=== PATIENT | male | born 1965 | race Hispanic/Latino ===

== ENCOUNTER → 2020-04-15 | Outpatient (CLI) | payer OTHER | END | disposition home or self-care (01) | LOC: RAH 11:26 | PROVIDERS: ATTEND Physical Medicine & Rehabilitation | DX: M19.011 Primary osteoarthritis, right shoulder (principal); M47.22 Other spondylosis with radiculopathy, cervical region; M48.02 Spinal stenosis, cervical region | CPT/HCPCS: 72040; 73030 ==

== ENCOUNTER → 2022-06-09 | Outpatient (CLI) | payer BC | END | disposition home or self-care (01) | LOC: RAH 08:45 | PROVIDERS: ATTEND Physical Medicine & Rehabilitation | DX: M47.816 Spondylosis without myelopathy or radiculopathy, lumbar region (principal); M99.03 Segmental and somatic dysfunction of lumbar region; M48.07 Spinal stenosis, lumbosacral region; Z88.2 Allergy status to sulfonamides | CPT/HCPCS: 72148 ==

== ENCOUNTER → 2022-06-10 | Outpatient (CLI) | payer BC | END | disposition home or self-care (01) | LOC: RAH 11:02 | PROVIDERS: ATTEND Physical Medicine & Rehabilitation | DX: M47.817 Spondylosis without myelopathy or radiculopathy, lumbosacral region (principal); M48.07 Spinal stenosis, lumbosacral region; M25.78 Osteophyte, vertebrae; Z88.2 Allergy status to sulfonamides | CPT/HCPCS: 72114 ==

== ENCOUNTER → 2022-06-11 | Outpatient (CLI) | payer BC | END | disposition home or self-care (01) | LOC: RAH 12:58 | PROVIDERS: ATTEND Physical Medicine & Rehabilitation | DX: M47.816 Spondylosis without myelopathy or radiculopathy, lumbar region (principal); M47.817 Spondylosis without myelopathy or radiculopathy, lumbosacral region; M25.78 Osteophyte, vertebrae | CPT/HCPCS: 72131 ==

== ENCOUNTER → 2023-07-12 | Outpatient (CLI) | payer BC | END | disposition home or self-care (01) | LOC: RAH 14:16 | PROVIDERS: ATTEND Anesthesiology | DX: M47.27 Other spondylosis with radiculopathy, lumbosacral region (principal); M48.07 Spinal stenosis, lumbosacral region | CPT/HCPCS: 72148 ==